=== PATIENT | male | born 1955 | race Caucasian/White ===

== ENCOUNTER 2022-06-23 11:40 | Emergency (ER) | payer BC, MEDICARE ==
[~2022-06-23] VITALS: Ht 170.2 cm; Wt 97.7 kg
[2022-06-23 12:07] VITALS: BP 125/77
[2022-06-23 12:40] LABS: BASOPHILS # (AUTO) 0.1 X10'3 (0-0.2); BASOPHILS % (AUTO) 0.8 % (0-1); EOSINOPHILS % (AUTO) 0.2 % (0-6); HEMATOCRIT 43.7 % (42.0-52.0); LYMPHOCYTES # (AUTO) 2.1 X10'3 (1.1-4.8); LYMPHOCYTES % (AUTO) 19.3 % (21-51); MEAN CORPUSCULAR HEMOGLOBIN 32.1 PG (27.0-31.0); MEAN CORPUSCULAR HGB CONC 34.2 g/dL (33.0-36.5); MEAN CORPUSCULAR VOLUME 93.8 FL (78-98); MEAN PLATELET VOLUME 7.5 FL (7.4-10.4); MONOCYTES # (AUTO) 0.5 X10'3 (0-0.9); NEUTROPHILS # (AUTO) 8.1 X10'3 (1.8-7.7); NEUTROPHILS % (AUTO) 74.7 % (42-75); PLATELET COUNT 371 X10'3 (140-440); RED BLOOD COUNT 4.66 X10'6 (4.70-6.10); RED CELL DISTRIBUTION WIDTH 13.4 % (11.5-14.5); WHITE BLOOD COUNT 10.9 X10'3 (4.5-11.0)
[2022-06-23 12:56] LABS: ALANINE AMINOTRANSFERASE 28 U/L (12-78); ALBUMIN 4.4 G/DL (3.4-5.0); ALBUMIN/GLOBULIN RATIO 1.3 (1.1-1.5); ALKALINE PHOSPHATASE 94 IU/L (46-116); ANION GAP 9 (8-16); ASPARTATE AMINO TRANSFERASE 17 U/L (10-37); BILIRUBIN,TOTAL 0.4 MG/DL (0.1-1.0); BLOOD UREA NITROGEN 24 MG/DL (7-18); BUN/CREATININE RATIO 19.2 (10.0-20.0); CALCIUM 9.6 MG/DL (8.5-10.1); CHLORIDE 104 MMOL/L (99-107); CREATININE 1.25 MG/DL (0.60-1.10); GLUCOSE 196 MG/DL (70-104); LIPASE 73 U/L (73-393); POTASSIUM 3.6 MMOL/L (3.5-5.1); SODIUM 141 MMOL/L (135-145); TOTAL CARBON DIOXIDE 27.7 MMOL/L (24-32); TOTAL PROTEIN 7.8 G/DL (6.4-8.2); eGFR 58 ML/MIN
--- NOTE | 2022-06-23 15:11 | NUR ---
LOUIE AT BEDSIDE
--- NOTE | 2022-06-23 15:17 | NUR ---
UA CUP AND INSTRUCTIONS GIVEN TO PT
[2022-06-23] MEDS ORDERED: ondansetron/PF 4mg/2ml inj IV ONE (15:20)
[2022-06-23] MEDS ORDERED: morphine 4 MG/ML inj SYRINge IV ONE (15:20)
[2022-06-23] MEDS ORDERED: normal saline 1000ml 1,000 ML IV ONE (15:20)
[2022-06-23 15:33] LABS: CLARITY,URINE CLEAR (Clear); COLOR,URINE YELLOW (Yellow); GLUCOSE, URINE NEGATIVE (Neg); KETONES,URINE TRACE mg/dl (Neg); LEUKOCYTE ESTERASE ,URINE NEGATIVE (Neg); NITRITES, URINE NEGATIVE (Neg); OCCULT BLOOD,URINE MODERATE (Neg); PROTEIN,URINE NEGATIVE (Neg); UROBILINOGEN,URINE 0.2 E.U/dL (0.2-1.0)
[2022-06-23] MEDS ORDERED: iohexol 300mg/ml 100ml inj. ONE (15:37)
[2022-06-23 15:40] LABS: UA COLLECTION TYPE CLN CATCH MIDSTREAM
[2022-06-23 16:03] LABS: BACTERIA,URINE FEW /HPF (Neg); SQUAMOUS EPITHELIAL CELL,UR NONE SEEN /LPF (FEW); WBC,URINE 0-4 /HPF (0-4)
[2022-06-23] MEDS ORDERED: ketorolac trometh. 30mg/ml inj. IV ONE (17:05)
[2022-06-23] MEDS ORDERED: FLO0.4C PO (17:08)
[2022-06-23] MEDS ORDERED: MORP15TA PO (17:08)
[2022-06-23] MEDS ORDERED: ONDA4TAB12 PO (17:08)
[2022-06-23] MEDS ORDERED: ketorolac tromethamine 15mg/ml inj. IV ONE (17:24)
== END 2022-06-23 17:29 | disposition home or self-care (01) ==
LOC: ER 11:41
DX: N20.0 Calculus of kidney (principal); I10 Essential (primary) hypertension; Z90.49 Acquired absence of other specified parts of digestive tract; Z79.899 Other long term (current) drug therapy
CPT/HCPCS: 36415; 74177; 80053; 81001; 83690; 85025; 96361; 96374; 96375; 99285; J1885; J2270; J2405; J3490; J7030; Q9967